=== PATIENT | male | born 1960 | race African-American/Black ===

== ENCOUNTER 2017-01-06 20:55 | Emergency (ER) | payer MEDICAID, OTHER ==
--- NOTE | 2017-01-06 22:11 | ER Document Report ---
ED General - General Chief Complaint: Other Stated Complaint: NOT FEELING WELL Time Seen by Provider: 01/06/17 21:24 Notes: Patient is a 56-year-old male with past medical history of hypertension, prior alcohol abuse although he denies any active alcohol abuse who presents with 3 weeks of diffuse body pain. History is extremely limited as patient is unwilling to answer many of my questions or clarify exactly what brought him to the emergency department other than his sisters told him that if he did not, zone she would force him to come. Nothing is new or different about her symptoms today relative to the past 3 weeks he denies any concern for an acute medical emergency. He denies any chest pain, shortness of breath, weakness, numbness, fever, vomiting or diarrhea. He denies a history of similar symptoms in the past. Nothing improves or worsens his symptoms. TRAVEL OUTSIDE OF THE [place] IN LAST 30 DAYS: No - Related Data Allergies/Adverse Reactions: No Known Allergies Allergy (Unverified 05/10/11 17:57) Past Medical History - General Information source: Patient - Social History Smoking Status: Current Every Day Smoker Chew tobacco use (# tins/day): No Frequency of alcohol use: Occasional Drug Abuse: None Lives with: Family Family History: Reviewed & Not Pertinent Patient has suicidal ideation: No Patient has homicidal ideation: No - Past Medical History Cardiac Medical History: Reports: Hx Hypertension Renal/ Medical History: Denies: Hx Peritoneal Dialysis - Immunizations Hx Diphtheria, Pertussis, Tetanus Vaccination: No Review of Systems - Review of Systems Notes: Constitutional: Negative for fever. HENT: Negative for sore throat. Eyes: Negative for visual changes. Cardiovascular: Negative for chest pain. Respiratory: Negative for shortness of breath. Gastrointestinal: Negative for abdominal pain, vomiting or diarrhea. Genitourinary: Negative for dysuria. Musculoskeletal: Positive for diffuse body pain Skin: Negative for rash. Neurological: Negative for headaches, weakness or numbness. 10 point ROS negative except as marked above and in HPI. Physical Exam - Vital signs Vitals: Temp Pulse Resp BP Pulse Ox 98.5 F 87 16 120/75 96 01/06/17 20:59 01/06/17 20:59 01/06/17 20:59 01/06/17 20:59 01/06/17 20:59 Interpretation: Normal Notes: PHYSICAL EXAMINATION: GENERAL: Thin, somewhat emaciated HEAD: Atraumatic, normocephalic. EYES: Pupils equal round and reactive to light, extraocular movements intact, sclera anicteric, conjunctiva are normal. ENT: nares patent, oropharynx clear without exudates. Dry mucous membranes. NECK: Normal range of motion, supple without lymphadenopathy LUNGS: Breath sounds clear to auscultation bilaterally and equal. No wheezes rales or rhonchi. HEART: Regular rate and rhythm without murmurs ABDOMEN: Soft, nontender, normoactive bowel sounds. No guarding, no rebound. No masses appreciated. EXTREMITIES: Normal range of motion, no pitting or edema. No cyanosis. NEUROLOGICAL: No focal neurological deficits. Moves all extremities spontaneously and on command. PSYCH: Somewhat aggressive on contact, moderately agitated SKIN: Warm, Dry, normal turgor, no rashes or lesions noted. Course - Re-evaluation Re-evalutation: 01/06/17 22:11 Patient presents with the very vague complaint of pain "from the top of my head to my toes". Patient is quite hostile and interaction, refuses to clarify more about what he means. Vitals are within normal limits at triage and at time of discharge. Physical examination is unremarkable. Patient has tolerated oral intake without difficulty. Patient was not noted to be in distress at any point during their ER visit. At this time, based on the reassuring evaluation, I do not suspect an acute CO, pulmonary embolus, aortic dissection, acute intra- abdominal pathology, stroke, or sepsis. Findings overall most consistent with chronic malnutrition and dehydration. Patient did have complete resolution of his diffuse body pain after receiving IV hydration and his pain may have been related to hypercalcemia. Will discharge with return precautions and follow-up recommendations. Verbal discharge instructions given a the bedside and opportunity for questions given. Medication warnings reviewed. Patient is in agreement with this plan and has verbalized understanding of return precautions and the need for primary care follow-up in the next 24-72 hours. - Vital Signs Vital signs: Temp Pulse Resp BP Pulse Ox 97.9 F 73 14 125/72 100 01/07/17 00:59 01/07/17 00:59 01/07/17 00:59 01/07/17 00:59 01/07/17 00:59 - Laboratory Result Diagrams: 01/06/17 22:10 01/06/17 22:10 Laboratory results interpreted by me: 01/06/17 01/06/17 01/06/17 22:10 22:10 22:10 RBC 3.83 L Hgb 13.2 L MCV 105 H MCH 34.6 H Monocytes % 15.0 H Sodium 133.0 L Chloride 97 L BUN 22 H Creatinine 1.30 H Est GFR (Non-Af Amer) 57 L Calcium 13.0 H* Total Bilirubin 1.5 H Direct Bilirubin 0.8 H AST 103 H Total Protein 9.2 H Lipase 351.9 H Urine Protein 30 H Urine Blood SMALL H Urine Bilirubin SMALL H Urine Urobilinogen 4.0 H Discharge - Discharge Clinical Impression: Dehydration, Hypercalcemia Condition: Good Disposition: HOME, SELF-CARE Additional Instructions: You are dehydrated. You need to eat and drink plenty of fluids and avoid dehydrating substances like alcohol. Please follow-up with your primary care doctor for repeat labs within the next 3 days. Return to the emergency department for any worsening symptoms including fever of greater than 101F, nausea, vomiting, or passing out. Referrals: DASH CHIANG MD [Primary Care Provider] - Follow up in 3-5 days
[2017-01-06 22:34] LABS: ABSOLUTE BASOPHILS # (AUTO) 0.1 10^3/uL (0.0-0.2); ABSOLUTE LYMPHOCYTES (AUTO) 1.6 10^3/uL (0.5-4.7); ABSOLUTE MONOCYTES (AUTO) 0.8 10^3/uL (0.1-1.4); ABSOLUTE NEUT (AUTO) 2.6 10^3/uL (1.7-8.2); BASOPHILS % (AUTO) 1.3 % (0-2); EOSINOPHILS % (AUTO) 0.7 % (0-6); HEMATOCRIT 40.1 % (37.9-51.0); HEMOGLOBIN 13.2 g/dL (13.5-17.0); HGB HCT DIFFERENCE -0.5; LYMPHOCYTES % (AUTO) 32.2 % (13-45); MEAN CORPUSCULAR HEMOGLOBIN 34.6 pg (27.0-33.4); MEAN CORPUSCULAR VOLUME 105 fl (80-97); RED BLOOD COUNT 3.83 10^6/uL (4.35-5.55); RED CELL DISTRIBUTION WIDTH 12.8 % (11.5-14.0); SEGMENTED NEUTROPHILS % (AUTO) 50.8 % (42-78); WHITE BLOOD COUNT 5.1 10^3/uL (4.0-10.5)
[2017-01-06 22:43] LABS: ALANINE AMINOTRANSFERASE 40 U/L (21-72); ALBUMIN 3.6 g/dL (3.5-5.0); ALKALINE PHOSPHATASE 70 U/L (38-126); ANION GAP 8 (5-19); ASPARTATE AMINO TRANSFERASE 103 U/L (17-59); BILIRUBIN,DIRECT 0.8 mg/dL (0.0-0.4); BILIRUBIN,TOTAL 1.5 mg/dL (0.2-1.3); BLOOD UREA NITROGEN 22 mg/dL (7-20); CARBON DIOXIDE 28 mmol/L (22-30); CHLORIDE 97 mmol/L (98-107); GLUCOSE 85 mg/dL (75-110); LIPASE 351.9 U/L (23-300); POTASSIUM 4.2 mmol/L (3.6-5.0); TOTAL PROTEIN 9.2 g/dL (6.3-8.2)
[2017-01-06 22:45] LABS: ALCOHOL < 10 mg/dL (NONE DETECTED)
[2017-01-06 22:54] LABS: APPEARANCE,URINE SLIGHTLY-CLOUDY; BILIRUBIN,URINE SMALL (NEGATIVE); GLUCOSE, URINE NEGATIVE (NEGATIVE); KETONES,URINE NEGATIVE (NEGATIVE); LEUKOCYTE ESTERASE,URINE NEGATIVE (NEGATIVE); NITRITE,URINE NEGATIVE (NEGATIVE); PROTEIN,URINE 30 mg/dL (NEGATIVE); URINE SPECIFIC GRAVITY 1.024
[2017-01-06 22:58] LABS: ADD ON TESTING BLD IN LAB ACKNOWLEDGE
[2017-01-06 23:07] LABS: CREATINE KINASE 70 U/L (55-170)
[2017-01-06] MEDS ORDERED: NORMAL SALINE 1000 ML 1,000 ML IV ONE (23:33)
[2017-01-07 01:03] VITALS: BP 125/72
== END 2017-01-07 01:08 | disposition home or self-care (01) ==
LOC: ER 20:55
DX: E86.0 Dehydration (principal); E83.52 Hypercalcemia; F17.200 Nicotine dependence, unspecified, uncomplicated; I10 Essential (primary) hypertension
CPT/HCPCS: 99284; 96360; 36415; 80307; 82550; 83690; 85025; 80053; 81001; J7030

== ENCOUNTER 2017-03-28 10:03 | Emergency (ER) | payer MEDICAID ==
--- NOTE | 2017-03-28 10:42 | ER Document Report ---
ED Medical Screen (RME) - General Chief Complaint: Weakness Stated Complaint: DONT EAT Time Seen by Provider: 03/28/17 10:40 Notes: Patient presents stating that he feels very weak. He states he went to see his primary care physician today and he was referred here to the emergency department. He states that he has not been eating like normal. He states he has no new pain but does have chronic back pain. He states he has had no changes of stool or urine. He does have vomiting. Patient denies cancer or chronic medical problems. Patient is a difficult historian. Past records state the patient has a history of chronic alcohol abuse. TRAVEL OUTSIDE OF THE [place] IN LAST 30 DAYS: No - Related Data Allergies/Adverse Reactions: No Known Allergies Allergy (Verified 03/28/17 10:27) Past Medical History - Social History Family history: Other - pt refuses to cooperate - Past Medical History Cardiac Medical History: Reports: Hx Hypertension Renal/ Medical History: Denies: Hx Peritoneal Dialysis - Immunizations Hx Diphtheria, Pertussis, Tetanus Vaccination: No Physical Exam - Vital signs Vitals: Temp Pulse Resp BP Pulse Ox 97.4 F 94 20 114/81 100 03/28/17 10:27 03/28/17 10:27 03/28/17 10:27 03/28/17 10:27 03/28/17 10:27 Course - Vital Signs Vital signs: Temp Pulse Resp BP Pulse Ox 97.4 F 94 20 114/81 100 03/28/17 10:27 03/28/17 10:27 03/28/17 10:27 03/28/17 10:27 03/28/17 10:27
[2017-03-28 11:09] LABS: ABSOLUTE BASOPHILS # (AUTO) 0.1 10^3/uL (0.0-0.2); ABSOLUTE EOSINOPHILS # (AUTO) 0.1 10^3/uL (0.0-0.6); ABSOLUTE MONOCYTES (AUTO) 0.5 10^3/uL (0.1-1.4); ABSOLUTE NEUT (AUTO) 6.7 10^3/uL (1.7-8.2); BASOPHILS % (AUTO) 0.8 % (0-2); HEMATOCRIT 27.2 % (37.9-51.0); HEMOGLOBIN 9.4 g/dL (13.5-17.0); LYMPHOCYTES % (AUTO) 12.4 % (13-45); MEAN CORPUSCULAR HEMOGLOBIN 33.9 pg (27.0-33.4); MEAN CORPUSCULAR HGB CONC 34.3 g/dL (32.0-36.0); MEAN CORPUSCULAR VOLUME 99 fl (80-97); RED BLOOD COUNT 2.76 10^6/uL (4.35-5.55); RED CELL DISTRIBUTION WIDTH 13.3 % (11.5-14.0); SEGMENTED NEUTROPHILS % (AUTO) 79.8 % (42-78); WHITE BLOOD COUNT 8.4 10^3/uL (4.0-10.5)
--- NOTE | 2017-03-28 11:31 | ER Document Report ---
ED General - General Chief Complaint: Weakness Stated Complaint: DONT EAT Time Seen by Provider: 03/28/17 10:40 Notes: Patient is an extremely poor historian. As best I can gather, patient went to his primary care provider's office this morning and was referred here for evaluation. Patient says that he has been weak and has not been eating well and has had weight loss. Patient says he is hurting all over, from head to toes. He has a prescription with him for insurer , written by Dr. Chiang. Patient says he has other medicines but does not remember what they are. Says he vomited once this morning. No diarrhea. Denies chest pain. Denies difficulty breathing or shortness of breath. Denies any fevers. Denies surgeries. Not sure what he takes medications for. TRAVEL OUTSIDE OF THE [place] IN LAST 30 DAYS: No - Related Data Allergies/Adverse Reactions: No Known Allergies Allergy (Verified 03/28/17 10:27) Past Medical History - Social History Smoking Status: Current Every Day Smoker Family History: Reviewed & Not Pertinent Patient has suicidal ideation: No Patient has homicidal ideation: No - Past Medical History Cardiac Medical History: Reports: Hx Hypertension - Immunizations Hx Diphtheria, Pertussis, Tetanus Vaccination: No Review of Systems - Review of Systems Notes: REVIEW OF SYSTEMS: CONSTITUTIONAL : Denies fever. Says he has been feeling tired and weak and poor appetite. EENT: Denies eye, ear, nose or mouth or throat pain or other symptoms. CARDIOVASCULAR: Denies chest pain. RESPIRATORY: Denies cough, chest congestion, or shortness of breath. GASTROINTESTINAL: Denies abdominal pain or nausea, vomiting, or diarrhea. GENITOURINARY: Denies difficulty or painful urinating, urinary frequency, blood in urine. MUSCULOSKELETAL: Denies back or neck pain. Denies joint pain or swelling. SKIN: Denies rash or skin lesions. NEUROLOGICAL: Denies LOC or altered mental status. Denies headache. Denies sensory loss or motor deficits. ALL OTHER SYSTEMS REVIEWED AND NEGATIVE. Physical Exam - Vital signs Vitals: Temp Pulse Resp BP Pulse Ox 97.4 F 94 20 114/81 100 03/28/17 10:27 03/28/17 10:27 03/28/17 10:27 03/28/17 10:27 03/28/17 10:27 Interpretation: Normal - Notes Notes: PHYSICAL EXAMINATION: GENERAL: Well-appearing, in no acute distress. Thin, wasting male. HEAD: Atraumatic, normocephalic. EYES: Pupils equal round and reactive to light, extraocular movements intact. ENT: oropharynx clear without exudates. Moist mucous membranes. NECK: Normal range of motion, supple. LUNGS: Breath sounds clear and equal bilaterally. HEART: Regular rate and rhythm without murmurs. ABDOMEN: Soft, nontender. No guarding or rebound. No masses felt. No bruits heard. BACK: No tenderness throughout entire back. EXTREMITIES: Normal range of motion without pain. NEUROLOGICAL: Normal speech, normal gait. Normal sensory, motor, and reflex exams. Awake, alert, and oriented x3. Cranial nerves normal. PSYCH: Normal mood, normal affect. SKIN: Warm, dry, no rashes. Course - Re-evaluation Re-evalutation: 03/28/17 20:[address] Chiang, patient's primary care provider. Calcium 14. He requested a CT scan which I ordered and showed the patient has multiple liver lesions. Spoke again with Dr. Chiang who will see the patient next week and work on getting him into hospice Am prescribing him 40 Percocets for pain. - Vital Signs Vital signs: Temp Pulse Resp BP Pulse Ox 98.2 F 85 18 148/79 H 100 03/28/17 20:32 03/28/17 20:32 03/28/17 20:32 03/28/17 20:32 03/28/17 20:32 - Laboratory Result Diagrams: 03/28/17 10:55 03/28/17 10:55 Laboratory results interpreted by me: 03/28/17 03/28/17 03/28/17 10:55 10:55 14:18 RBC 2.76 L Hgb 9.4 L Hct 27.2 L MCV 99 H MCH 33.9 H Seg Neutrophils % 79.8 H Lymphocytes % 12.4 L BUN 30 H Creatinine 1.39 H Est GFR (Non-Af Amer) 53 L Glucose 146 H Calcium 14.9 H* Direct Bilirubin 0.6 H AST 92 H Total Protein 10.7 H Urine Protein 100 H Urine Ascorbic Acid 40 H Discharge - Discharge Clinical Impression: Hypercalcemia, Liver mass Condition: Stable Disposition: HOME, SELF-CARE Additional Instructions: Elevated calcium. Your liver shows several masses which is likely some form of tumor. Oral Narcotic Medication You have been given a prescription for pain control. This medication is a narcotic. It's best taken with food, as nausea can result if taken on an empty stomach. Don't operate machinery or drive within six hours of taking this medication. Do not combine this medicine with alcohol, or with any medication which can cause sedation (such as cold tablets or sleeping pills) unless you get permission from the physician. Narcotics tend to cause constipation. If possible, drink plenty of fluids and eat a diet high in fiber and fruits. FOLLOW-UP CARE: If you have been referred to a physician for follow-up care, call the physician s office for an appointment as you were instructed or within the next two days. If you experience worsening or a significant change in your symptoms, notify the physician immediately or return to the Emergency Department at any time for re-evaluation. Call Dr. Chiang's office tomorrow and schedule a follow-up appointment next week. Prescriptions: Oxycodone HCl/Acetaminophen [Percocet 5-325 mg Tablet] 1 - 2 tab PO Q4H PRN #40 tablet PRN Reason: Referrals: DASH CHIANG MD [Primary Care Provider] - Follow up as needed
[2017-03-28 11:35] LABS: ALANINE AMINOTRANSFERASE 22 U/L (21-72); ALKALINE PHOSPHATASE 72 U/L (38-126); ANION GAP 10 (5-19); ASPARTATE AMINO TRANSFERASE 92 U/L (17-59); BILIRUBIN,DIRECT 0.6 mg/dL (0.0-0.4); BILIRUBIN,TOTAL 0.8 mg/dL (0.2-1.3); BLOOD UREA NITROGEN 30 mg/dL (7-20); CARBON DIOXIDE 24 mmol/L (22-30); CHLORIDE 104 mmol/L (98-107); CREATININE RESULT 1.39 mg/dL (0.52-1.25); GLUCOSE 146 mg/dL (75-110); SODIUM 138.2 mmol/L (137-145); TOTAL PROTEIN 10.7 g/dL (6.3-8.2)
[2017-03-28 11:39] LABS: ALCOHOL < 10 mg/dL (NONE DETECTED)
[2017-03-28 11:45] LABS: CALCIUM 14.9 mg/dL (8.4-10.2)
--- NOTE | 2017-03-28 11:58 | RADIOLOGY REPORT (SQ) ---
EXAM DESCRIPTION: CHEST PA/LAT COMPLETED DATE/TIME: 03/28/2017 11:50 am REASON FOR STUDY: Weight loss COMPARISON: 06/15/2011. EXAM PARAMETERS: NUMBER OF VIEWS: two views TECHNIQUE: Digital Frontal and Lateral radiographic views of the chest acquired. RADIATION DOSE: NA LIMITATIONS: none FINDINGS: LUNGS AND PLEURA: No opacities, masses or pneumothorax. No pleural effusion. MEDIASTINUM AND HILAR STRUCTURES: No masses or contour abnormalities. HEART AND VASCULAR STRUCTURES: Heart normal size. No evidence for failure. BONES: No acute findings. HARDWARE: None in the chest. OTHER: No other significant finding. IMPRESSION: NO SIGNIFICANT RADIOGRAPHIC FINDING IN THE CHEST. TECHNICAL DOCUMENTATION: JOB ID: [id number] [employer]- All Rights Reserved
[2017-03-28] MEDS ORDERED: NORMAL SALINE 1000 ML 1,000 ML IV ONE ×2 (14:12)
[2017-03-28 14:44] LABS: APPEARANCE,URINE SLIGHTLY-CLOUDY; BILIRUBIN,URINE NEGATIVE (NEGATIVE); GLUCOSE, URINE NEGATIVE (NEGATIVE); KETONES,URINE NEGATIVE (NEGATIVE); LEUKOCYTE ESTERASE,URINE NEGATIVE (NEGATIVE); NITRITE,URINE NEGATIVE (NEGATIVE); PROTEIN,URINE 100 mg/dL (NEGATIVE); URINE SPECIFIC GRAVITY 1.015; UROBILINOGEN,URINE NEGATIVE mg/dL (<2.0)
--- NOTE | 2017-03-28 17:37 | RADIOLOGY REPORT (SQ) ---
EXAM DESCRIPTION: CT ABD/PELVIS WITH IV ORAL COMPLETED DATE/TIME: 03/28/2017 5:03 pm REASON FOR STUDY: Weak, weight loss, elevated calcium, ?CA COMPARISON: 05/10/2011 TECHNIQUE: CT scan of the abdomen and pelvis performed with intravenous and oral contrast using иван tomas scanning technique with dynamic intravenous contrast injection. Images reviewed with lung, soft t issue, and bone windows. Reconstructed coronal and sagittal MPR images reviewed. Delayed images for e valuation of the urinary system also acquired. All images stored on PACS. All CT scanners at this facility use dose modulation, iterative reconstruction, and/or weight based d osing when appropriate to reduce radiation dose to as low as reasonably achievable (ALARA). [facility]: Dose Right [facility]: CareDose [facility]: Dose Right [facility]: Teradose 4D [facility]: [employer] ([employer]) CONTRAST TYPE AND DOSE: contrast/concentration: Isovue 370.00 mg/ml; Total Contrast Delivered: 49.0 ml; Total Saline Delivered: 55.0 ml RENAL FUNCTION: Creatinine measures 1.39 RADIATION DOSE: Up-to-date CT equipment and radiation dose reduction techniques were employed. CTDIv ol: 5.0 - 6.0 mGy. DLP: 585 mGy-cm. . LIMITATIONS: None. FINDINGS: LOWER CHEST: Left hilar/ infrahilar mass/ adenopathy measuring 3.6 x 3.2 cm. Innumerable pulmonary nodules within the visualize lungs the largest on the right measuring up to 1.7 cm in the l argest on the left measuring up to 1.8 cm. Some of the nodules in the left lower lobe have surroundi ng ground-glass opacities which may be due to active inflammation or hemorrhage. Trace left pleural effusion. Multiple old healed rib fractures. LIVER: Dominant ill-defined low attenuating mass centered within the right hepatic lobe measuring 14. 4 x 12.0 x 15.6 cm with adjacent satellite masses with the next largest measuring approximately 3.9 x 1.5 x 4.2 cm. Question additional mass within the caudate lobe of the liver versus adjacent lymph n odes best seen on series 601 image 29 and series 3, image 24 measuring 3.4 x 1.4 x 5.8 cm which has s ignificant mass effect upon the intrahepatic portion of the IVC. SPLEEN: Normal size. No focal lesions. PANCREAS: No masses. No significant calcifications. No adjacent inflammation or peripancreatic fluid collections. Pancreatic duct not dilated. GALLBLADDER: No identified stones by CT criteria. No inflammatory changes to suggest cholecystitis. ADRENAL GLANDS: The right adrenal gland is not confidently identified in is either displaced or repla gloria with tumor. The left adrenal gland is grossly normal. RIGHT KIDNEY AND URETER: No solid masses. No significant calcifications. No hydronephrosis or hyd roureter. LEFT KIDNEY AND URETER: No solid masses. No significant calcifications. No hydronephrosis or hydr oureter. AORTA AND VESSELS: No aneurysm. No dissection. Renal arteries, SMA, celiac without stenosis. RETROPERITONEUM: Right and left periaortic lymphadenopathy most notably involving the aortocaval junc tion and divina hepatis with confluent lymph nodes measuring up to 3.4 cm. No hemorrhage. BOWEL AND PERITONEAL CAVITY: No obstruction. No visualized masses. No free fluid. No inflammatory ch anges or thickening of bowel wall. APPENDIX: Normal. PELVIS: No significant masses. Normal bladder. Moderate free fluid. ABDOMINAL WALL: No masses. No hernias. BONES: No fracture or suspicious osseous lesion. Stable air sclerosis involving the right and left f emoral heads compatible with avascular necrosis. OTHER: No other significant finding. IMPRESSION: DOMINANT MASS WITHIN THE RIGHT HEPATIC LOBE MEASURING UP TO 15.6 CM WITH ADDITIONAL SATE LLITE MASSES RIGHT HEPATIC LOBE. ADDITIONAL MASS WITHIN THE CAUDATE LOBE OF THE LIVER VERSUS ADJACEN T LYMPH NODES RESULTING IN SIGNIFICANT COMPRESSION OF THE INTRAHEPATIC PORTION OF THE IVC. 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 DIFFERENTIAL INCLUDES METASTATIC DISEASE. RECOMMEND CORRELATION WITH TUMOR MARKERS. ADDITIONAL RETROPERITONEAL LYMPHADENOPATHY, LEFT HILAR/INFRAHILAR LYMPHADENOPATHY/MASS, AND NUMEROUS PULMONARY NODULES DESCRIBED ABOVE CONCERNING FOR METASTATIC DISEASE. OTHER MAIN DIFFERENTIAL INCL UDES PRIMARY LUNG MALIGNANCY WITH METASTATIC DISEASE. TECHNICAL DOCUMENTATION: JOB ID: [id number] Quality ID # [id number]: Final reports with documentation of one or more dose reduction techniques (e.g., Au tomated exposure control, adjustment of the mA and/or kV according to patient size, use of iterative reconstruction technique) 2010 [employer]- All Rights Reserved
[2017-03-28 20:34] VITALS: BP 148/79
== END 2017-03-28 20:32 | disposition home or self-care (01) ==
LOC: ER 10:03
DX: E83.52 Hypercalcemia (principal); K76.9 Liver disease, unspecified; R53.1 Weakness; R52 Pain, unspecified; R63.4 Abnormal weight loss; Z68.1 Body mass index [BMI] 19.9 or less, adult; R11.10 Vomiting, unspecified; R63.0 Anorexia; R53.83 Other fatigue; F17.200 Nicotine dependence, unspecified, uncomplicated; I10 Essential (primary) hypertension
CPT/HCPCS: 99285; 96360; 96361; 36415; 80307; 84153; 85025; 80053; 81001; 71020; 74177; J7030

== ENCOUNTER 2017-04-24 09:12 | Day surgery (SDC) | payer MEDICAID ==
[2017-04-24 09:58] LABS: HEMATOCRIT 26.9 % (37.9-51.0); HEMOGLOBIN 9.1 g/dL (13.5-17.0); HGB HCT DIFFERENCE 0.4; MEAN CORPUSCULAR HEMOGLOBIN 33.5 pg (27.0-33.4); MEAN CORPUSCULAR HGB CONC 33.9 g/dL (32.0-36.0); MEAN CORPUSCULAR VOLUME 99 fl (80-97); RED BLOOD COUNT 2.73 10^6/uL (4.35-5.55); RED CELL DISTRIBUTION WIDTH 13.7 % (11.5-14.0); WHITE BLOOD COUNT 7.8 10^3/uL (4.0-10.5)
[2017-04-24 10:06] LABS: PROTHROMBIN TIME 14.4 SEC (11.4-15.4)
[2017-04-24 10:07] LABS: PARTIAL THROMBOPLASTIN TIME 25.8 SEC (23.5-35.8)
[2017-04-24 10:18] LABS: BLOOD UREA NITROGEN 41 mg/dL (7-20)
[2017-04-24] MEDS ORDERED: FENTANYL CITRATE INJ/PF 100 MCG/2 ML AMPUL ONE (11:20)
[2017-04-24] MEDS ORDERED: MIDAZOLAM 2 MG/2 ML INJ ONE (11:20)
[2017-04-24 14:20] VITALS: BP 116/85
--- NOTE | 2017-04-24 15:37 | RADIOLOGY REPORT (SQ) ---
EXAM DESCRIPTION: CT BIOPSY LIVER; CT NEEDLE PLACEMENT COMPLETED DATE/TIME: 04/24/2017 12:08 pm; 04/24/2017 12:07 pm REASON FOR STUDY: HEP C; HEP C, LIVER BIOPSY B19.20 UNSPECIFIED VIRAL HEPATITIS C WITHOUT HEPATIC C DEBBIE COMPARISON: CT abdomen and pelvis 03/28/2017, 05/10/2011 TECHNIQUE: After obtaining informed consent, the patient was brought to the CT suite and was placed supine on the CT gurney. The patient was prepped and draped in the usual sterile fashion . Axial valentine ges were obtained for targeting of theright lobe liver mass. An appropriate access site was selected. IV sedation was administered and physician direction by the registered nurse using 0.5 milligrams of Versed and 50 micrograms of fentanyl. Physiologic monitoring was provided before, during, and after sedation. The total sedation time was 30 minutes. Documentation face to face time, the performing proceduralist, spent monitoring the patient: 8minutes . Noncontrasted CT of the liver was performed to localize an approach for the right lobe mass liver bi opsy. A percutaneous site was marked. Time out was performed. After skin prep and local lidocaine for skin and deep tissue anesthesia, a coaxial biopsy needle sys tem was used to obtain several cores of tissue from the mass in the right lobe liver. These were sub mitted to the lab in formalin. Biopsy tract was embolized with a Gelfoam plug. No immediate postpro cedure complications. Total of 0.[address] fluoro was used. All CT scanners at this facility use dose modulation, iterative reconstruction, and/or weight based d osing when appropriate to reduce radiation dose to as low as reasonably achievable (ALARA). [facility]: Dose Right [facility]: CareDose [facility]: Dose Right [facility]: Teradose 4D [facility]: [employer] RADIATION DOSE: Up-to-date CT equipment and radiation dose reduction techniques were employed. CTDIv ol: 7.5 mGy. DLP: 163 mGy-cm. mGy. LIMITATIONS: None. FINDINGS: CT guided liver biopsy as detailed above. IMPRESSION: CT GUIDED RIGHT LOBE LIVER MASSBIOPSY PERFORMED ABOVE. PATHOLOGY PENDING. NO IMMED IATE COMPLICATIONS. COMMENT: Patient medication list reviewed:Yes- Quality ID# [id number]:Eligible professional attests to docu menting in the medical record they obtained, updated, or reviewed the patient's current medications.. Quality ID [id number]: Final reports for procedures using fluoroscopy that document radiation exposure lana shoshana, or exposure time and number of fluorographic images (if radiation exposure indices are not avail able) TECHNICAL DOCUMENTATION: JOB ID: [id number] Quality ID # [id number]: Final reports with documentation of one or more dose reduction techniques (e.g., A utomated exposure control, adjustment of the mA and/or kV according to patient size, use of iterative reconstruction technique) 2010 [employer]- All Rights Reserved
== END 2017-04-24 14:10 | disposition home or self-care (01) ==
LOC: RAD 09:12
PROVIDERS: ATTEND Internal Medicine Hematology & Oncology
PROC: 0FB13ZX Excision of Right Lobe Liver, Percutaneous Approach, Diagnostic (ICD-10-PCS; principal; 2017-04-24)
DX: C22.7 Other specified carcinomas of liver (principal); B19.20 Unspecified viral hepatitis C without hepatic coma; D64.9 Anemia, unspecified; M10.9 Gout, unspecified; E87.5 Hyperkalemia; Z79.899 Other long term (current) drug therapy
CPT/HCPCS: 36415; 84520; 82565; 85027; 85610; 85730; 88342 ×2; 88341 ×2; 88313 ×2; 77012; 47000; J2250; J3010